=== PATIENT | male | born 1985 | race Caucasian/White ===

== ENCOUNTER 2019-02-24 05:07 | Emergency (ER) | payer OTHER ==
[2019-02-24] MEDS ORDERED: Sodium Chloride 0.9% 1000 ML 1,000 ML IV STA (05:27)
--- NOTE | 2019-02-24 05:36 | ERPHSYRPT ---
- History of Present Illness Source: patient Exam Limitations: no limitations Patient Subjective Stated Complaint: Behavioral Problems/Paranoid Triage Nursing Assessment: Patient brought into ED via w/c and transferred self to bed. Patient A+O X 3. Patient's aunt stated she was called at 0330 to patient wanting her to come get him. When aunt arrived to patient's home he was extremly paranoid thinking people are trying to hurt him and follow him. Patient stated he used meth prior to calling aunt. Patient states he has dx schizophrenia and is taking medication unknown of names at this time. Patient figeting around and standing up/sitting down. Patient chewing on fingers and extremely paranoid. Patient here wanting help for treatment for drugs. Patient willing to be here. Timing/Duration: today Severity: moderate Modifying Factors: Improves With: other (patient using methamphetamines) Associated Symptoms: No nausea, No vomiting, No abdominal pain, No shortness of breath, No heartburn, No diaphoresis, No cough, No chills, No chest pain, No fever, No headaches, No loss of appetite, No malaise, No rash, No syncope, No seizure, No weakness Hx Influenza Vaccination/Date Given: Yes Hx Pneumococcal Vaccination/Date Given: No Immunizations Up to Date: Yes <CAIT TERESA - Last Filed: 02/24/19 07:00> <CONSTANTINO CRAWFORD - Last Filed: 02/24/19 08:05> - History of Present Illness Time Seen by Provider: 02/24/19 05:33 Physician History: 33-year-old white male with history of paranoid schizophrenia brought by his family with complaints that the patient has been doing breath today since 1:00 and he is apparently having paranoid ideation. Patient apparently uses methamphetamines also marijuana. Past medical history includes paranoid schizophrenia. (CAIT TERESA) Allergies/Adverse Reactions: No Known Drug Allergies Allergy (Verified 02/24/19 06:57) Home Medications: Buprenorphine HCl/Naloxone HCl [Suboxone 8 mg-2 mg Sl Film] 1 each SL BID [History] - Review of Systems Constitutional: No Fever, No Chills Eyes: No Symptoms Ears, Nose, & Throat: No Symptoms Respiratory: No Cough, No Dyspnea Cardiac: No Chest Pain, No Edema, No Syncope Abdominal/Gastrointestinal: No Abdominal Pain, No Nausea, No Vomiting, No Diarrhea Genitourinary Symptoms: No Dysuria Musculoskeletal: No Back Pain, No Neck Pain Skin: No Rash Neurological: No Dizziness, No Focal Weakness, No Sensory Changes Psychological: Drug Abuse, Other (paranoid ideation), No Suicidal Ideations, No Homicidal Ideations Endocrine: No Symptoms All Other Systems: Reviewed and Negative <MALICKCAIT DURANTLEY - Last Filed: 02/24/19 07:00> - Past Medical History Neurological History: No Pertinent History ENT History: No Pertinent History Cardiac History: No Pertinent History Respiratory History: No Pertinent History Endocrine Medical History: No Pertinent History Musculoskeletal History: No Pertinent History GI Medical History: GERD History: No Pertinent History Psycho-Social History: Anxiety, Other Male Reproductive Disorders: No Pertinent History Other Medical History: Paranoid Schizophrenic - Past Surgical History Past Surgical History: No Neuro Surgical History: No Pertinent History Cardiac: No Pertinent History Respiratory: No Pertinent History Gastrointestinal: No Pertinent History Genitourinary: No Pertinent History Musculoskeletal: No Pertinent History Male Surgical History: No Pertinent History - Social History Smoking Status: Current every day smoker How long have you smoked: Years Exposure to second hand smoke: Yes Drug Use: marijuana, methamphetamines Patient Lives Alone: No <MALICKCAIT PAT - Last Filed: 02/24/19 07:00> - Physical Exam General Appearance: other (well-developed white male alert oriented to his self patient looking around the room hypervigilant) Eye Exam: PERRL/EOMI, eyes nml inspection Ears, Nose, Throat Exam: normal ENT inspection, TMs normal, pharynx normal, moist mucous membranes Neck Exam: normal inspection, non-tender, supple, full range of motion Respiratory Exam: normal breath sounds, lungs clear, No respiratory distress Cardiovascular Exam: regular rate/rhythm, normal heart sounds, normal peripheral pulses, capillary refill <2 sec Gastrointestinal/Abdomen Exam: soft, normal bowel sounds, No tenderness, No mass Back Exam: normal inspection, normal range of motion, No CVA tenderness, No vertebral tenderness Extremity Exam: normal inspection, normal range of motion, pelvis stable Neurologic Exam: alert, oriented x 3, cooperative, normal mood/affect, nml cerebellar function, nml station & gait, sensation nml, No motor deficits Skin Exam: normal color, warm, dry, No rash SpO2 Interpretation: normal (95%) SpO2: 95 <CAIT TERESA - Last Filed: 02/24/19 07:00> - Nursing Vital Signs Nursing Vital Signs: Initial Vital Signs Pulse Rate 79 02/24/19 05:14 Respiratory Rate 18 02/24/19 05:14 Blood Pressure 152/68 02/24/19 05:14 O2 Sat by Pulse Oximetry 95 02/24/19 05:14 Pain Scale Pain Intensity 0 - Course Nursing assessment & vital signs reviewed: Yes EKG Interpreted by Me: RATE (79 bpm), Sinus Rhythm, NORMAL AXIS, Other (EKG: Sinus rhythm, 79 beats per minute, normal axis, intraventricular conduction delay, no acute ST or T wave changes noted) <CAIT TERESA - Last Filed: 02/24/19 07:00> Ordered Tests: Active Orders 24 hr Category Date Time Status Anesthesiology Resident STAT Care 02/24/19 05:27 Active EKG-ER Only STAT Care 02/24/19 05:27 Active IV Insertion STAT Care 02/24/19 05:27 Active Psychiatric Consult STAT Cons 02/24/19 06:44 Active ACETAMINOPHEN Stat Lab 02/24/19 06:03 Completed CBC W DIFF Stat Lab 02/24/19 06:03 Completed CMP Stat Lab 02/24/19 06:03 Completed ETHYL ALCOHOL Stat Lab 02/24/19 06:03 Completed SALICYLATE Stat Lab 02/24/19 06:03 Completed UA W/RFX UR CULTURE Stat Lab 02/24/19 05:41 Completed Urine Triage Profile Stat Lab 02/24/19 06:00 Completed Medication Summary Discontinued Medications Generic Name Dose Route Start Last Admin Trade Name Chetq PRN Reason Stop Dose Admin Sodium Chloride 1,000 mls @ 999 mls/hr 02/24/19 05:27 02/24/19 06:37 Sodium Chloride 0.9% 1000 Ml IV 02/24/19 06:27 999 mls/hr .Q1H1M STA Administration Sodium Chloride Confirm 02/24/19 05:44 Sodium Chloride 0.9% 1000 Ml Administered 02/24/19 05:45 Dose 1,000 mls @ ud .ROUTE .STK-MED ONE Lorazepam 1 mg 02/24/19 06:19 02/24/19 06:37 Ativan 2 Mg/1 Ml Vial IV 02/24/19 06:20 1 mg STAT ONE Administration Lorazepam Confirm 02/24/19 06:20 Ativan 2 Mg/1 Ml Vial Administered 02/24/19 06:21 Dose 2 mg .ROUTE .STK-MED ONE Lorazepam 1 mg 02/24/19 07:08 02/24/19 07:21 Ativan 2 Mg/1 Ml Vial IV 02/24/19 07:09 1 mg STAT ONE Administration Lorazepam Confirm 02/24/19 07:18 Ativan 2 Mg/1 Ml Vial Administered 02/24/19 07:19 Dose 2 mg .ROUTE .STK-MED ONE Lab/Rad Data: Laboratory Result Diagrams 02/24/19 06:03 02/24/19 06:03 Laboratory Results 02/24/19 02/24/19 02/24/19 Range/Units 06:03 06:03 06:00 WBC 14.2 H (4.0-10.5) K/mm3 RBC 5.17 (4.1-5.6) M/mm3 Hgb 15.5 (12.5-18.0) gm/dl Hct 43.7 (42-50) % MCV 84.5 (78-100) fl MCH 30.0 (26-32) pg MCHC 35.5 (32-36) g/dl RDW 14.0 (11.5-14.0) % Plt Count 287 (150-450) K/mm3 MPV 9.8 H (6-9.5) fl Gran % 86.6 H (36.0-66.0) % Eos # (Auto) 0.01 (0-0.5) Absolute Lymphs (auto) 1.48 (1.0-4.6) Absolute Monos (auto) 0.38 (0.0-1.3) Lymphocytes % 10.5 L (24.0-44.0) % Monocytes % 2.7 (0.0-12.0) % Eosinophils % 0.1 (0.00-5.0) % Basophils % 0.1 (0.0-0.4) % Absolute Granulocytes 12.26 H (1.4-6.9) Basophils # 0.02 (0-0.4) Sodium 143 (137-145) mmol/L Potassium 3.9 (3.5-5.1) mmol/L Chloride 105 (98-107) mmol/L Carbon Dioxide 25 (22-30) mmol/L Anion Gap 17.0 H (5-15) MEQ/L BUN 13 (9-20) mg/dL Creatinine 0.66 (0.66-1.25) mg/dL Estimated GFR > 60.0 ML/MIN Glucose 145 H (74-106) mg/dL Calcium 10.3 H (8.4-10.2) mg/dL Total Bilirubin 0.40 (0.2-1.3) mg/dL AST 31 (17-59) U/L ALT 34 (0-50) U/L Alkaline Phosphatase 93 (38-126) U/L Serum Total Protein 8.9 H (6.3-8.2) g/dL Albumin 5.0 (3.5-5.0) g/dL Urine Color (YELLOW) Urine Appearance (CLEAR) Urine pH (5-6) Ur Specific [place] (1.005-1.025) Urine Protein (Negative) Urine Ketones (NEGATIVE) Urine Blood (0-5) Papi/ul Urine Nitrite (NEGATIVE) Urine Bilirubin (NEGATIVE) Urine Urobilinogen (0-1) mg/dL Ur Leukocyte Esterase (NEGATIVE) Urine Culture Reflexed (NO) Urine Glucose (NEGATIVE) mg/dL Salicylates < 1.0 L (2-20) mg/dL Urine Opiates Level NEGATIVE (NEGATIVE) Ur Methadone NEGATIVE (NEGATIVE) Acetaminophen < 10 L (10-30) ug/ml Urine Barbiturates NEGATIVE (NEGATIVE) Ur Phencyclidine (PCP) NEGATIVE (NEGATIVE) Urine Amphetamine POSITIVE (NEGATIVE) U Benzodiazepine Level NEGATIVE (NEGATIVE) Urine Cocaine NEGATIVE (NEGATIVE) Urine Marijuana (THC) POSITIVE (NEGATIVE) Ethyl Alcohol < 10 (0-10) mg/dL 02/24/19 Range/Units 05:41 WBC (4.0-10.5) K/mm3 RBC (4.1-5.6) M/mm3 Hgb (12.5-18.0) gm/dl Hct (42-50) % MCV (78-100) fl MCH (26-32) pg MCHC (32-36) g/dl RDW (11.5-14.0) % Plt Count (150-450) K/mm3 MPV (6-9.5) fl Gran % (36.0-66.0) % Eos # (Auto) (0-0.5) Absolute Lymphs (auto) (1.0-4.6) Absolute Monos (auto) (0.0-1.3) Lymphocytes % (24.0-44.0) % Monocytes % (0.0-12.0) % Eosinophils % (0.00-5.0) % Basophils % (0.0-0.4) % Absolute Granulocytes (1.4-6.9) Basophils # (0-0.4) Sodium (137-145) mmol/L Potassium (3.5-5.1) mmol/L Chloride (98-107) mmol/L Carbon Dioxide (22-30) mmol/L Anion Gap (5-15) MEQ/L BUN (9-20) mg/dL Creatinine (0.66-1.25) mg/dL Estimated GFR ML/MIN Glucose (74-106) mg/dL Calcium (8.4-10.2) mg/dL Total Bilirubin (0.2-1.3) mg/dL AST (17-59) U/L ALT (0-50) U/L Alkaline Phosphatase (38-126) U/L Serum Total Protein (6.3-8.2) g/dL Albumin (3.5-5.0) g/dL Urine Color YELLOW (YELLOW) Urine Appearance CLEAR (CLEAR) Urine pH 7.0 (5-6) Ur Specific [place] 1.015 (1.005-1.025) Urine Protein NEGATIVE (Negative) Urine Ketones NEGATIVE (NEGATIVE) Urine Blood NEGATIVE (0-5) Papi/ul Urine Nitrite NEGATIVE (NEGATIVE) Urine Bilirubin NEGATIVE (NEGATIVE) Urine Urobilinogen NORMAL (0-1) mg/dL Ur Leukocyte Esterase NEGATIVE (NEGATIVE) Urine Culture Reflexed NO (NO) Urine Glucose 250 (NEGATIVE) mg/dL Salicylates (2-20) mg/dL Urine Opiates Level (NEGATIVE) Ur Methadone (NEGATIVE) Acetaminophen (10-30) ug/ml Urine Barbiturates (NEGATIVE) Ur Phencyclidine (PCP) (NEGATIVE) Urine Amphetamine (NEGATIVE) U Benzodiazepine Level (NEGATIVE) Urine Cocaine (NEGATIVE) Urine Marijuana (THC) (NEGATIVE) Ethyl Alcohol (0-10) mg/dL - Progress Progress: improved <CAIT TERESA - Last Filed: 02/24/19 07:00> - Progress Counseled pt/family regarding: lab results, diagnosis, need for follow-up <CONSTANTINO CRAWFORD - Last Filed: 02/24/19 08:05> - Progress Progress Note: 02/24/19 06:59 patient given ativan 1 mg iv for agitation. case will be transferred to Dr Crawford secondary to shift change. (CAIT TERESA) 02/24/19 08:03 dr. pee farley at [facility] accepts pt. pt and pts mother was informed pt will not be receiving suboxone. pt is aware and accepts being transferred. (CONSTANTINO CRAWFORD) <CAIT TERESA - Last Filed: 02/24/19 07:00> - Departure Departure Disposition: Transfer Critical Care Time: No <CONSTANTINO CRAWFORD - Last Filed: 02/24/19 08:05> - Departure Clinical Impression: Bipolar 1 disorder with moderate sukhjinder, Paranoid schizophrenia, Illicit drug use Condition: Stable Referrals: DOCTOR,NO FAMILY [Primary Care Provider] -
[2019-02-24] MEDS ORDERED: Sodium Chloride 0.9% 1000 ML 1,000 ML ONE (05:44)
[2019-02-24 06:06] LABS: BASOPHIL % 0.1 % (0.0-0.4); Basophil (Absolute #) 0.02 (0-0.4); Eosinophil % 0.1 % (0.00-5.0); Eosinophil (Absolute #) 0.01 (0-0.5); Granulocyte Absolute (ANC) 12.26 (1.4-6.9); Granulocytes % 86.6 % (36.0-66.0); Hematocrit 43.7 % (42-50); Hemoglobin 15.5 gm/dl (12.5-18.0); Lymphocyte (Absolute #) 1.48 (1.0-4.6); Lymphocytes % 10.5 % (24.0-44.0); Mean Cell Volume 84.5 fl (78-100); Mean Corpuscular Hgb Concent. 35.5 g/dl (32-36); Mean Platelet Volume 9.8 fl (6-9.5); Monocyte (Absolute #) 0.38 (0.0-1.3); Monocytes % 2.7 % (0.0-12.0); Platelet Count 287 K/mm3 (150-450); Red Blood Count 5.17 M/mm3 (4.1-5.6); White Blood Count 14.2 K/mm3 (4.0-10.5)
[2019-02-24 06:17] LABS: Barbiturate,Urine NEGATIVE (NEGATIVE); Benzodiazepine,Urine NEGATIVE (NEGATIVE); Cocaine,Urine NEGATIVE (NEGATIVE); Methadone,Urine NEGATIVE (NEGATIVE); Opiate,Urine NEGATIVE (NEGATIVE); PCP,Urine NEGATIVE (NEGATIVE); THC,Urine POSITIVE (NEGATIVE)
[2019-02-24] MEDS ORDERED: Ativan 2 MG/1 ML VIAL IV ONE ×2 (06:19→07:08)
[2019-02-24] MEDS ORDERED: Ativan 2 MG/1 ML VIAL ONE ×2 (06:20→07:18)
[2019-02-24 06:35] LABS: ALKALINE PHOSPHATASE 93 U/L (38-126); BLOOD UREA NITROGEN 13 mg/dL (9-20); CHLORIDE 105 mmol/L (98-107); Calcium 10.3 mg/dL (8.4-10.2); Carbon Dioxide 25 mmol/L (22-30); Creatinine 1 0.66 mg/dL (0.66-1.25); Glucose 145 mg/dL (74-106); Potassium 3.9 mmol/L (3.5-5.1); SGOT/AST 31 U/L (17-59); SGPT/ALT 34 U/L (0-50); SODIUM 143 mmol/L (137-145); Total Protein 8.9 g/dL (6.3-8.2)
[2019-02-24 06:36] LABS: Appearance CLEAR (CLEAR); Bilirubin NEGATIVE (NEGATIVE); Blood NEGATIVE Ery/ul (0-5); Glucose 250 mg/dL (NEGATIVE); Ketones NEGATIVE (NEGATIVE); Leukocyte Esterase NEGATIVE (NEGATIVE); Nitrite NEGATIVE (NEGATIVE); Protein,Urine Dip NEGATIVE (Negative); Specific Gravity 1.015 (1.005-1.025); Urobilinogen NORMAL mg/dL (0-1)
[2019-02-24 06:37] LABS: ACETAMINOPHEN < 10 ug/ml (10-30); ETHYL ALCOHOL < 10 mg/dL (0-10); SALICYLATE < 1.0 mg/dL (2-20)
[2019-02-24 06:41] LABS: Amphetamine,Urine POSITIVE (NEGATIVE)
[2019-02-24 07:01] VITALS: O2SAT 95
[2019-02-24 07:45] VITALS: BP 168/87; PULSE 85
== END 2019-02-24 09:03 | disposition short-term general hospital (02) ==
LOC: MERGE 05:07 → ED 05:07
DX: F31.9 Bipolar disorder, unspecified (principal); F20.0 Paranoid schizophrenia; F12.90 Cannabis use, unspecified, uncomplicated; F15.90 Other stimulant use, unspecified, uncomplicated; F41.9 Anxiety disorder, unspecified; Z79.899 Other long term (current) drug therapy
CPT/HCPCS: 36000; 36415; 80053; 80307; 81001; 85025; 90791; 93005; 96360; 96374; 96376; 99285; G0480; G0481; Q3014; J2060

== ENCOUNTER 2021-10-25 15:10 | Emergency (ER) | payer MEDICAID, OTHER ==
[2021-10-25 15:34] VITALS: BP 138/83; PULSE 102; O2SAT 97
[2021-10-25 15:53] LABS: Appearance SLIGHTLY CLOUDY (CLEAR); Bacteria RARE /HPF (NEGATIVE); Bilirubin NEGATIVE (NEGATIVE); Blood NEGATIVE Ery/ul (0-5); Glucose NEGATIVE (NEGATIVE); Ketones TRACE (NEGATIVE); Leukocyte Esterase NEGATIVE (NEGATIVE); Mucus MANY /HPF (NEGATIVE); Nitrite NEGATIVE (NEGATIVE); Protein,Urine Dip 30 (Negative); Specific Gravity 1.034 (1.005-1.025); Urobilinogen 4 mg/dL (0-1)
--- NOTE | 2021-10-25 15:54 | ERPHSYRPT ---
- History of Present Illness Time Seen by Provider: 10/25/21 15:40 Source: patient Exam Limitations: no limitations Patient Subjective Stated Complaint: Pt states "I haven't been able to pee or poop in the last week. When I try and pee its just dribbles Triage Nursing Assessment: Pt alert and oriented x3, skin pink, warm and dry. Pt denies any blood in stool or urine. Pt able to ambulate to cot independently Physician History: This is a 36-year-old white male patient of Dr. Aguilar has a history of paranoid schizophrenia, gastroesophageal reflux disease and anxiety who presents to the emergency department with complaints of difficulty urinating (dribbling) and constipation in the last week. He has had no abdominal pain. He has had no vomiting. He is never had episodes like this in the past. He denies penile discharge. Timing/Duration: week(s) (1) Activites at Onset: none Quality: fullness, pressure Onset Location: suprapubic Pain Radiation: none Severity of Pain-Max: none Severity of Pain-Current: none Modifying Factors: Improves With: defecating (Difficult in the last week), urinating Associated Symptoms: denies symptoms Prior abdominal problems: none Sexual intercourse history: non-contributory Allergies/Adverse Reactions: No Known Drug Allergies Allergy (Verified 10/25/21 15:35) Hx Tetanus, Diphtheria Vaccination/Date Given: No Hx Influenza Vaccination/Date Given: No Hx Pneumococcal Vaccination/Date Given: No Immunizations Up to Date: No Travel Risk - International Travel Have you traveled outside of the country in past 3 weeks: No - Coronavirus Screening Are you exhibiting any of the following symptoms?: No Close contact with a COVID-19 positive Pt in past 14-21 Days: No - Vaccine Status Have you recieved a Covid-19 vaccination: No - Past Medical History Pertinent Past Medical History: Yes (see below) Neurological History: No Pertinent History ENT History: No Pertinent History Cardiac History: No Pertinent History Respiratory History: No Pertinent History Endocrine Medical History: No Pertinent History Musculoskeletal History: No Pertinent History GI Medical History: GERD, Gallbladder Disease History: No Pertinent History Psycho-Social History: Anxiety, Other Male Reproductive Disorders: No Pertinent History Other Medical History: Paranoid Schizophrenic - Past Surgical History Past Surgical History: No Neuro Surgical History: No Pertinent History Cardiac: No Pertinent History Respiratory: No Pertinent History Gastrointestinal: No Pertinent History Genitourinary: No Pertinent History Musculoskeletal: No Pertinent History Male Surgical History: No Pertinent History - Social History Smoking Status: Never smoker How long have you smoked: 15 YRS Exposure to second hand smoke: No Drug Use: marijuana, methamphetamines, none Patient Lives Alone: No - Review of Systems Constitutional: No Symptoms Eyes: No Symptoms Ears, Nose, & Throat: No Symptoms Respiratory: No Symptoms Cardiac: No Symptoms Abdominal/Gastrointestinal: Constipation, No Abdominal Pain, No Nausea, No Vomiting, No Diarrhea Genitourinary Symptoms: Other (Difficulty urinating), No Dysuria, No Frequency, No Flank Pain Musculoskeletal: No Symptoms Skin: No Symptoms Neurological: No Symptoms Psychological: No Symptoms Endocrine: No Symptoms Hematologic/Lymphatic: No Symptoms Immunological/Allergic: No Symptoms All Other Systems: Reviewed and Negative - Nursing Vital Signs Nursing Vital Signs: Initial Vital Signs Temperature 98.4 F 10/25/21 15:33 Pulse Rate 102 H 10/25/21 15:33 Respiratory Rate 18 10/25/21 15:33 Blood Pressure 138/83 10/25/21 15:33 O2 Sat by Pulse Oximetry 97 10/25/21 15:33 Pain Scale Pain Intensity 8 - Physical Exam General Appearance: no apparent distress, alert, anxiety Eye Exam: PERRL/EOMI, eyes nml inspection Ears, Nose, Throat Exam: normal ENT inspection, moist mucous membranes Neck Exam: normal inspection, non-tender, supple, full range of motion Respiratory Exam: airway intact, No chest tenderness, No respiratory distress Cardiovascular Exam: regular rate/rhythm, normal heart sounds, normal peripheral pulses Gastrointestinal/Abdomen Exam: soft, normal bowel sounds, No tenderness Rectal Exam: not done Back Exam: normal inspection, normal range of motion, No CVA tenderness, No vertebral tenderness Extremity Exam: normal inspection, normal range of motion, pelvis stable Neurologic Exam: alert, oriented x 3, cooperative, fluorescent solution mixer II-XII nml as tested, normal mood/affect, nml cerebellar function, nml station & gait, sensation nml Skin Exam: normal color, warm, dry Lymphatic Exam: No adenopathy SpO2 Interpretation: normal SpO2: 97 O2 Delivery: Room Air - Course Nursing assessment & vital signs reviewed: Yes Ordered Tests: Active Orders 24 hr Category Date Time Status KUB Stat Exams 10/25/21 15:38 Taken Ultrasound Bladder [BLADDER] [US] Stat Exams 10/25/21 16:30 Taken UA W/RFX UR CULTURE Stat Lab 10/25/21 15:56 Completed Lab/Rad Data: Laboratory Results 10/25/21 Range/Units 15:56 Urine Color TAI (YELLOW) Urine Appearance SLIGHTLY CLOUDY (CLEAR) Urine pH 5.0 (5-6) Ur Specific [place] 1.034 (1.005-1.025) Urine Protein 30 (Negative) Urine Ketones TRACE (NEGATIVE) Urine Blood NEGATIVE (0-5) Papi/ul Urine Nitrite NEGATIVE (NEGATIVE) Urine Bilirubin NEGATIVE (NEGATIVE) Urine Urobilinogen 4 (0-1) mg/dL Ur Leukocyte Esterase NEGATIVE (NEGATIVE) Urine WBC (Auto) 3-5 (0-5) /HPF Urine RBC (Auto) 3-5 (0-2) /HPF U Epithel Cells (Auto) NONE (FEW) /HPF Urine Bacteria (Auto) RARE (NEGATIVE) /HPF Urine Mucus (Auto) MANY (NEGATIVE) /HPF Urine Culture Reflexed NO (NO) Urine Glucose NEGATIVE (NEGATIVE) mg/dL - Progress Progress: unchanged Progress Note: 10/25/21 16:41 Bladder ultrasound shows no retained urine per food technology teacher. KUB shows air and small amount of stool within the rectal vault. No evidence of bowel obstruction. Counseled pt/family regarding: lab results, diagnosis, need for follow-up, rad results - Departure Departure Disposition: Home Clinical Impression: Constipation Condition: Stable Critical Care Time: No Referrals: DAYANA AGUILAR [Primary Care Provider] - Follow up/PCP as directed Additional Instructions: Drink plenty of fluids. May use [id number] milk of magnesia, magnesium citrate or MiraLAX per [id number] package instructions. Follow-up with your primary care provider for further evaluation and management.
--- NOTE | 2021-10-25 16:47 | XRAY ---
Indication: Urinary retention. Limited ultrasound of urinary bladder is empty. No focal solid/cystic mass or abnormal fluid collection.
--- NOTE | 2021-10-25 16:49 | XRAY ---
Indication: Constipation and difficulty urinating. Comparison: None KUB nonacute and nonobstructed with little scattered colonic fecal debris. Solid organs and osseous structures unremarkable.
== END 2021-10-25 16:53 | disposition home or self-care (01) ==
LOC: ED 15:10
DX: K59.00 Constipation, unspecified (principal); R39.12 Poor urinary stream; F20.0 Paranoid schizophrenia; K21.9 Gastro-esophageal reflux disease without esophagitis; F41.9 Anxiety disorder, unspecified
CPT/HCPCS: 74018; 76705; 81001; 99283

== ENCOUNTER 2023-01-27 12:31 | Emergency (ER) | payer MEDICAID ==
[2023-01-27 13:08] LABS: Absolute Neutrophil Ct (ANC) 9.43 x10^3/uL (1.4-6.9); BASOPHIL % 0.6 % (0.0-0.4); Basophil (Absolute #) 0.07 x10^3/uL (0-0.4); Eosinophil (Absolute #) 0 x10^3/uL (0-0.5); Hematocrit 41.5 % (42-50); Hemoglobin 14.4 g/dL (12.5-18.0); IMMATURE GRAN # 0.06 x10^3u/L (0.00-0.03); IMMATURE GRAN % 0.5 % (0.00-0.4); Lymphocyte (Absolute #) 1.67 x10^3/uL (1.0-4.6); Lymphocytes % 13.6 % (24.0-44.0); Mean Cell Volume 87.2 fL (78-100); Mean Corpuscular Hemoglobin 30.3 pg (26-32); Mean Corpuscular Hgb Concent. 34.7 g/dL (32-36); Mean Platelet Volume 9.9 fL (7.5-11.0); Monocyte (Absolute #) 1.06 x10^3/uL (0.0-1.3); Monocytes % 8.6 % (0.0-12.0); Neutrophil % 76.7 % (36.0-66.0); Platelet Count 291 x10^3/uL (150-450); Red Blood Count 4.76 x10^6/uL (4.1-5.6); Red Cell Distribution Width 12.1 % (11.5-14.0); White Blood Count 12.3 x10^3/uL (4.0-10.5)
--- NOTE | 2023-01-27 13:16 | ERPHSYRPT ---
- History of Present Illness Source: patient, other (Domingo's mother) Exam Limitations: other (Poor historian) Patient Subjective Stated Complaint: Behavioral problems. Triage Nursing Assessment: Patient ambulated back to ED and transferred self to bed. Patient A+O X3. Patient's skin pink, warm and dry. Patient brought into ED per family friend. Patient went inside her mosque and told her he needed to be lifelined to a hospital due to. Patient suspicious and paranoid during assessment. Physician History: 37 yo WM brought into ER by Domingo's mother presents to the ER having a schizophrenic exacerbation. He is having visual/auditory hallucinations. Pt was beating on daisy-JACKLYN's windows last night. Timing/Duration: yesterday Context related to: other Allergies/Adverse Reactions: No Known Drug Allergies Allergy (Verified 01/27/23 12:37) Home Medications: No Reportable Medications [No Reported Medications] 01/27/23 [History] Hx Tetanus, Diphtheria Vaccination/Date Given: No Hx Influenza Vaccination/Date Given: No Hx Pneumococcal Vaccination/Date Given: No Immunizations Up to Date: Yes Travel Risk - International Travel Have you traveled outside of the country in past 3 weeks: No - Coronavirus Screening Are you exhibiting any of the following symptoms?: No Close contact with a COVID-19 positive Pt in past 14-21 Days: No - Vaccine Status Have you recieved a Covid-19 vaccination: No - Past Medical History Pertinent Past Medical History: Yes (see below) Neurological History: No Pertinent History ENT History: No Pertinent History Cardiac History: No Pertinent History Respiratory History: No Pertinent History Endocrine Medical History: No Pertinent History Musculoskeletal History: No Pertinent History GI Medical History: GERD, Gallbladder Disease History: No Pertinent History Psycho-Social History: Anxiety, Other Male Reproductive Disorders: No Pertinent History Other Medical History: Paranoid Schizophrenic - Past Surgical History Past Surgical History: No Neuro Surgical History: No Pertinent History Cardiac: No Pertinent History Respiratory: No Pertinent History Gastrointestinal: No Pertinent History Genitourinary: No Pertinent History Musculoskeletal: No Pertinent History Male Surgical History: No Pertinent History - Social History Smoking Status: Former smoker How long have you smoked: 15 YRS Exposure to second hand smoke: No Drug Use: marijuana, methamphetamines, none Patient Lives Alone: No - Nursing Vital Signs Nursing Vital Signs: Initial Vital Signs Temperature 98.9 F 06/04/23 12:39 Pulse Rate 116 H 01/27/23 12:39 Respiratory Rate 18 01/27/23 12:39 Blood Pressure 149/98 01/27/23 12:39 O2 Sat by Pulse Oximetry 96 01/27/23 12:39 Pain Scale Pain Intensity 0 Tachy/Hypertensive - Physical Exam General Appearance: no apparent distress Eyes, Ears, Nose, Throat Exam: normal ENT inspection, TMs normal, pharynx normal Neck Exam: normal inspection, non-tender, supple, full range of motion, No Brudzinski, No Kernig's, No meningismus, No carotid bruit Respiratory Exam: normal breath sounds, lungs clear, airway intact, No respiratory distress Cardiovascular Exam: normal heart sounds, normal peripheral pulses, tachycardia, capillary refill <2 sec, No murmur Gastrointestinal/Abdominal Exam: soft, normal bowel sounds, other (- circ'ed/Testes descended B/No blood at meatus/No perineal ecchymosis or TTP) Extremities Exam: normal inspection, normal range of motion, No evidence of injury Peripheral Pulses: carotid (R): 2+, carotid (L): 2+ Neurological Exam: alert, legal entity controller II-XII nml as tested Appearance: impaired insight Behavior/Eye Contact/Speech: alert & cooperative Thoughts/Hallucinations: auditory hallucinations, paranoid SpO2 Interpretation: normal SpO2: 96 O2 Delivery: Room Air - Course Nursing assessment & vital signs reviewed: Yes EKG Interpreted by Me: RATE (Sinus tach/rate 111/Prolonged QTc/IRBBB/Non- specifice ST changes/LVH) - CT Exams Abdomen/Pelvis CT Interpretation: Tele-radiologist Report (Horseshoe kidneys, nothing acute) Ordered Tests: Active Orders 24 hr Category Date Time Status ABDOMEN AND PELVIS W/0 CONTRAS [CT] Stat Exams 01/27/23 14:21 Completed ACETAMINOPHEN Stat Lab 01/27/23 13:05 Completed CBC W DIFF Stat Lab 01/27/23 13:05 Completed CMP Stat Lab 01/27/23 13:05 Completed ETHYL ALCOHOL Stat Lab 01/27/23 13:05 Completed SALICYLATE Stat Lab 01/27/23 13:05 Completed UA W/RFX UR CULTURE Stat Lab 01/27/23 13:14 Completed Urine Triage Profile Stat Lab 01/27/23 13:14 Completed Lab/Rad Data: Laboratory Result Diagrams 01/27/23 13:05 01/27/23 13:05 Laboratory Results 01/27/23 01/27/23 01/27/23 Range/Units 13:14 13:14 13:05 WBC (4.0-10.5) x10^3/uL RBC (4.1-5.6) x10^6/uL Hgb (12.5-18.0) g/dL Hct (42-50) % MCV (78-100) fL MCH (26-32) pg MCHC (32-36) g/dL RDW (11.5-14.0) % Plt Count (150-450) x10^3/uL MPV (7.5-11.0) fL Gran % (36.0-66.0) % Immature Gran % (Auto) (0.00-0.4) % Nucleat RBC Rel Count (0.00-0.1) % Eos # (Auto) (0-0.5) x10^3/uL Immature Gran # (Auto) (0.00-0.03) x10^3u/L Absolute Lymphs (auto) (1.0-4.6) x10^3/uL Absolute Monos (auto) (0.0-1.3) x10^3/uL Absolute Nucleated RBC (0.00-0.01) x10^3u/L Lymphocytes % (24.0-44.0) % Monocytes % (0.0-12.0) % Eosinophils % (0.00-5.0) % Basophils % (0.0-0.4) % Absolute Granulocytes (1.4-6.9) x10^3/uL Basophils # (0-0.4) x10^3/uL Sodium 139 (137-145) mmol/L Potassium 4.4 (3.5-5.1) mmol/L Chloride 100 (98-107) mmol/L Carbon Dioxide 28 (22-30) mmol/L Anion Gap 15.0 (5-15) MEQ/L BUN 26 H (9-20) mg/dL Creatinine 0.82 (0.66-1.25) mg/dL Estimated GFR > 60.0 ML/MIN Glucose 100 (74-106) mg/dL Calcium 8.8 (8.4-10.2) mg/dL Total Bilirubin 1.00 (0.2-1.3) mg/dL AST 219 H (17-59) U/L ALT 91 H (0-50) U/L Alkaline Phosphatase 123 (38-126) U/L Serum Total Protein 8.2 (6.3-8.2) g/dL Albumin 4.5 (3.5-5.0) g/dL Urine Color Dark Yellow (Yellow) Urine Appearance Cloudy A (Clear) Urine pH 5.5 (4.6-8.0) Ur Specific [place] 1.025 (1.005-1.030) Urine Protein 30 (Negative) Urine Glucose (UA) Negative (Negative) mg/dL Urine Ketones 15 A (Negative) Urine Blood Large A (Negative) Urine Nitrite Negative (Negative) Urine Bilirubin Negative (Negative) Urine Urobilinogen 1.0 A (0.2) mg/dL Ur Leukocyte Esterase Trace A (Negative) U Hyaline Cast (Auto) 0-2 (0-2) /LPF Urine Microscopic RBC 51-100 A (0-5) /HPF Urine Microscopic WBC 3-5 (0-5) /HPF Ur Epithelial Cells Rare (None Seen) /HPF Urine Bacteria None Seen (None Seen) /HPF Urine Culture Reflexed NO (NO) Salicylates < 1.0 L (2-20) mg/dL Urine Opiates Level NEGATIVE (NEGATIVE) Ur Methadone NEGATIVE (NEGATIVE) Acetaminophen < 10 L (10-30) ug/ml Urine Barbiturates NEGATIVE (NEGATIVE) Ur Phencyclidine (PCP) NEGATIVE (NEGATIVE) Urine Amphetamine POSITIVE (NEGATIVE) U Benzodiazepine Level NEGATIVE (NEGATIVE) Urine Cocaine NEGATIVE (NEGATIVE) Urine Marijuana (THC) NEGATIVE (NEGATIVE) Ethyl Alcohol < 10 (0-10) mg/dL 01/27/23 Range/Units 13:05 WBC 12.3 H (4.0-10.5) x10^3/uL RBC 4.76 (4.1-5.6) x10^6/uL Hgb 14.4 (12.5-18.0) g/dL Hct 41.5 L (42-50) % MCV 87.2 (78-100) fL MCH 30.3 (26-32) pg MCHC 34.7 (32-36) g/dL RDW 12.1 (11.5-14.0) % Plt Count 291 (150-450) x10^3/uL MPV 9.9 (7.5-11.0) fL Gran % 76.7 H (36.0-66.0) % Immature Gran % (Auto) 0.5 H (0.00-0.4) % Nucleat RBC Rel Count 0.0 (0.00-0.1) % Eos # (Auto) 0 (0-0.5) x10^3/uL Immature Gran # (Auto) 0.06 H (0.00-0.03) x10^3u/L Absolute Lymphs (auto) 1.67 (1.0-4.6) x10^3/uL Absolute Monos (auto) 1.06 (0.0-1.3) x10^3/uL Absolute Nucleated RBC 0.00 (0.00-0.01) x10^3u/L Lymphocytes % 13.6 L (24.0-44.0) % Monocytes % 8.6 (0.0-12.0) % Eosinophils % 0.0 (0.00-5.0) % Basophils % 0.6 (0.0-0.4) % Absolute Granulocytes 9.43 H (1.4-6.9) x10^3/uL Basophils # 0.07 (0-0.4) x10^3/uL Sodium (137-145) mmol/L Potassium (3.5-5.1) mmol/L Chloride (98-107) mmol/L Carbon Dioxide (22-30) mmol/L Anion Gap (5-15) MEQ/L BUN (9-20) mg/dL Creatinine (0.66-1.25) mg/dL Estimated GFR ML/MIN Glucose (74-106) mg/dL Calcium (8.4-10.2) mg/dL Total Bilirubin (0.2-1.3) mg/dL AST (17-59) U/L ALT (0-50) U/L Alkaline Phosphatase (38-126) U/L Serum Total Protein (6.3-8.2) g/dL Albumin (3.5-5.0) g/dL Urine Color (Yellow) Urine Appearance (Clear) Urine pH (4.6-8.0) Ur Specific [place] (1.005-1.030) Urine Protein (Negative) Urine Glucose (UA) (Negative) mg/dL Urine Ketones (Negative) Urine Blood (Negative) Urine Nitrite (Negative) Urine Bilirubin (Negative) Urine Urobilinogen (0.2) mg/dL Ur Leukocyte Esterase (Negative) U Hyaline Cast (Auto) (0-2) /LPF Urine Microscopic RBC (0-5) /HPF Urine Microscopic WBC (0-5) /HPF Ur Epithelial Cells (None Seen) /HPF Urine Bacteria (None Seen) /HPF Urine Culture Reflexed (NO) Salicylates (2-20) mg/dL Urine Opiates Level (NEGATIVE) Ur Methadone (NEGATIVE) Acetaminophen (10-30) ug/ml Urine Barbiturates (NEGATIVE) Ur Phencyclidine (PCP) (NEGATIVE) Urine Amphetamine (NEGATIVE) U Benzodiazepine Level (NEGATIVE) Urine Cocaine (NEGATIVE) Urine Marijuana (THC) (NEGATIVE) Ethyl Alcohol (0-10) mg/dL - Progress Progress Note: 01/27/23 15:28 Nursing note and vital signs reviewed Pt has unstable housing Additional history per ex-SO's mother 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 Since pt is having auditory hallucinations, pt was ED'ed because he could be a danger to himself or others. No suicidal ideation at this time. Pt accepted by [facility] after ED paperwork signed by dressage judge. All labs reviewed CT abdomen pelvis reviewed Hematuria of unknown etiology. No obvious injury to penis/testicles/perineal area. Counseled pt/family regarding: lab results, diagnosis, rad results Medical Desision Making - Independent Historian Additional History obtained from: Relative/friend - Discussion of managment Care discussed with:: specialist - Diagnostic Testing Diagnostic test were ordered, analyzed, and reviewed by me: Yes Radiological Interpretation: Teleradiologist Report - Risk of complications The pt has a high risk of morbidity or mortality based on: Drug therapy requiring intensive monitoring for toxicity - Departure Departure Disposition: Transfer Clinical Impression: Schizophrenia, acute, Methamphetamine abuse, Psychosis, Hematuria Condition: Stable Critical Care Time: No Referrals: DAYANA PARKINSON [Primary Care Provider] - Follow up/PCP as directed
[2023-01-27 13:22] LABS: ACETAMINOPHEN < 10 ug/ml (10-30); ALBUMIN 4.5 g/dL (3.5-5.0); ALKALINE PHOSPHATASE 123 U/L (38-126); BLOOD UREA NITROGEN 26 mg/dL (9-20); CHLORIDE 100 mmol/L (98-107); Calcium 8.8 mg/dL (8.4-10.2); Carbon Dioxide 28 mmol/L (22-30); Creatinine 1 0.82 mg/dL (0.66-1.25); EST GLOMERULAR FILTRATION RATE > 60.0 ML/MIN; ETHYL ALCOHOL < 10 mg/dL (0-10); Glucose 100 mg/dL (74-106); Potassium 4.4 mmol/L (3.5-5.1); SALICYLATE < 1.0 mg/dL (2-20); SGOT/AST 219 U/L (17-59); SGPT/ALT 91 U/L (0-50); SODIUM 139 mmol/L (137-145); Total Protein 8.2 g/dL (6.3-8.2)
[2023-01-27 13:33] LABS: Appearance Cloudy (Clear); Bilirubin Negative (Negative); Blood Large (Negative); Glucose, Urine Negative (Negative); Ketones 15 (Negative); Nitrite Negative (Negative); Ph 5.5 (4.6-8.0); Protein,Urine Dip 30 (Negative); Specific Gravity 1.025 (1.005-1.030)
[2023-01-27 13:49] LABS: Bacteria None Seen /HPF (None Seen); Barbiturate,Urine NEGATIVE (NEGATIVE); Benzodiazepine,Urine NEGATIVE (NEGATIVE); Cocaine,Urine NEGATIVE (NEGATIVE); Epithelial Cells Rare /HPF (None Seen); Leukocyte Esterase Trace (Negative); Methadone,Urine NEGATIVE (NEGATIVE); Opiate,Urine NEGATIVE (NEGATIVE); PCP,Urine NEGATIVE (NEGATIVE); THC,Urine NEGATIVE (NEGATIVE)
[2023-01-27 14:02] LABS: ADD URINE CULTURE? NO (NO); Hyaline Casts 0-2 /LPF (0-2); RBC 51-100 /HPF (0-5)
[2023-01-27 14:20] LABS: Amphetamine,Urine POSITIVE (NEGATIVE)
[2023-01-27 14:27] VITALS: BP 142/97; PULSE 112
--- NOTE | 2023-01-27 15:24 | XRAY ---
CLINICAL HISTORY:Hematuria. COMPARISON:None. TECHNIQUES:Axial CT cuts were taken through the abdomen and pelvis with multiplanar reformatting and without contrast administration. 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 No back pressure changes. Small left pelvic calcific shadows, likely outside the course of the left ureter, likely phleboli. Normal course and caliber of both ureters with no evidence of stones or mural abnormalities. Normal filling of the urinary bladder with no stones, masses, or diverticula. Normal CT appearance of the liver, pancreas, spleen, adrenal glands, and great vessels on a non-contrast basis. No significant lymph rony enlargement or ascetic fluid collection. The prostate is of average size and shape with a small calcification. Bone window images show lumbar and lower thoracic spondylotic changes with lower thoracic posterior disc osteophyte complexes and mild anterior wedging of the lower thoracic vertebrae. Lower chest cuts are unremarkable. Small left upper scrotal sac calcification, likely vascular. IMPRESSION: 1. 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 2. Lumbar and lower thoracic spondylotic changes as described. Electronically Signed by: Mamadou Arce MD. (01/27/2023 14:21:09 [facility])
[2023-01-27 15:34] VITALS: O2SAT 96
== END 2023-01-27 16:50 | disposition short-term general hospital (02) ==
LOC: ED 12:31
DX: F23 Brief psychotic disorder (principal); F15.10 Other stimulant abuse, uncomplicated; R31.9 Hematuria, unspecified; Z28.310 Unvaccinated for COVID-19
CPT/HCPCS: 36415; 74176; 80053; 80143; 80179; 80307; 81001; 82077; 85025; 93005; 99285